=== PATIENT | female | born 1975 | race Caucasian/White ===

== ENCOUNTER 2025-10-05 14:33 | Emergency (ER) | payer OTHER, SELFPAY ==
[2025-10-05 14:44] VITALS: BP 136/84; PULSE 97; TEMP 36.8; O2SAT 99; BMI 23.0
--- NOTE | 2025-10-05 14:52 | ED.GENADUL1 ---
HPI HPI - General Adult General Chief complaint: Extremity Problem, Nontraumatic Stated complaint: POSSIBLE L LEG INFECTION Time Seen by Provider: 10/05/25 14:46 Source: patient Mode of arrival: walk-in History of Present Illness HPI narrative: 50-year-old female presents for an area of redness and swelling on her left leg. She is concerned about a staph infection. She had visited a family member who recently had staph. It is been red and swollen for about 4 days. No fever or vomiting. Related Data Home Medications ?Medication ?Instructions ?Recorded ?Confirmed losartan 100 mg tablet 100 mg PO DAILY 10/05/25 10/05/25 Previous Rx's ?Medication ?Instructions ?Recorded cephalexin 500 mg capsule 500 mg PO QID 10 days #40 caps 10/05/25 sulfamethoxazole 800 1 tab PO BID 10 days #20 tabs 10/05/25 mg-trimethoprim 160 mg tablet (Bactrim DS) Allergies Allergy/AdvReac Type Severity Reaction Status Date / Time No Known Drug Allergies Allergy Verified 10/05/25 14:43 Opioid HPI Opioid Management Most Recent Opioid Data: Last Pain Scale 6 Today, 14:50 Review of Systems ROS Narrative A ten point review of systems is negative except as noted above. PFSH PFSH Social History Little interest or pleasure in doing things: not at all Feeling down, depressed, or hopeless: not at all Exam Narrative Exam Narrative: Nurses note and vital signs reviewed General:The patient appears in no apparent distress. Patient is resting comfortably on cart. Skin:Warm, dry, no pallor noted.there is on her left lower leg and area of slight swelling approximately 3 cm in diameter. Surrounding this is a nonraised area of erythema. There is no lymphangitis and there is no fluctuance or purulent drainage. Head:Normocephalic, atraumatic Eye: Normal conjunctiva, no drainage Ears, Nose, Mouth, and Throat: oral mucosa is moist. Nares patent. Cardiovascular:Regular Rate and Rhythm Respiratory:Patient is in no distress, no accessory muscle use, lungs are clear to auscultation, no wheezing, rales or rhonchi Back:non-tender GI: Soft and nontender Musculoskeletal: See above for description of lesion on left leg Neurological:A&O, normal speech Psychiatric:Cooperative Constitutional Vital Signs, click to edit/add: Last Vital Signs Temp 98.2 F 10/05/25 14:44 Pulse 97 H 10/05/25 14:44 Resp 16 10/05/25 14:44 BP 136/84 10/05/25 14:44 Pulse Ox 99 10/05/25 14:44 O2 Del Method Room Air 10/05/25 14:44 Course Vital Signs Vital signs: Vital Signs Temperature 98.2 F 10/05/25 14:44 Pulse Rate 97 H 10/05/25 14:44 Respiratory Rate 16 10/05/25 14:44 Blood Pressure 136/84 10/05/25 14:44 Pulse Oximetry 99 10/05/25 14:44 Oxygen Delivery Method Room Air 10/05/25 14:44 Temperature 98.2 F 10/05/25 14:44 Pulse Rate 97 H 10/05/25 14:44 Respiratory Rate 16 10/05/25 14:44 Blood Pressure 136/84 10/05/25 14:44 Pulse Oximetry 99 10/05/25 14:44 Oxygen Delivery Method Room Air 10/05/25 14:44 Medical Decision Making MDM Narrative Medical decision making narrative: The patient has cellulitis of her left leg and was given IV vancomycin. She was prescribed Bactrim and Keflex. Blood work is significant for hemoglobin of 8.6 and she does not have a history of anemia but has had heavy periods. She will follow-up with her PCP for workup in that regard. Treatment diagnosis and follow-up were discussed with the patient. I have no clinical suspicion of an abscess. Differential Diagnosis Differential Diagnosis: Cellulitis, abscess Lab Data Lab results reviewed: Yes I reviewed the patient's lab results Labs: Lab Results 10/05/25 Range/Units 15:10 WBC 9.0 (4.0-11.0) 10^3/uL RBC 4.62 (4.20-5.40) 10^6/uL Hgb 8.6 L (12.0-16.0) g/dL Hct 29.1 L (36.0-48.0) % MCV 63.0 L (81.0-99.0) fL MCH 18.6 L (26.7-34.0) pg MCHC 29.6 L (29.9-35.2) g/dL RDW 17.9 H (11.0-15.0) % Plt Count 364 (150-450) 10^3/uL MPV 9.4 L (9.5-13.5) fL Neut % (Auto) 75.0 (43.0-75.0) % Lymph % (Auto) 16.4 L (20.5-60.0) % Sutter % (Auto) 5.9 (1.7-12.0) % Eos % (Auto) 1.9 (0.9-7.0) % Baso % (Auto) 0.4 (0.2-2.0) % Neut # (Auto) 6.7 H (1.4-6.5) 10^3/uL Lymph # (Auto) 1.5 (1.2-3.8) 10^3/uL Sutter # (Auto) 0.5 (0.3-0.8) 10^3/uL Eos # (Auto) 0.2 (0.0-0.7) 10^3/uL Baso # (Auto) 0.0 (0.0-0.1) 10^3/uL Abs Immat Gran (auto) 0.04 H (0.00-0.03) 10^3/uL Imm/Tot Granulo (auto) 0.4 (0.0-0.5) % Sodium 138 (136-145) mmol/L Potassium 3.5 (3.5-5.1) mmol/L Chloride 102 (98-107) mmol/L Carbon Dioxide 27.0 (21.0-32.0) mmol/L Anion Gap 12.5 BUN 11.0 (7.0-18.0) mg/dL Creatinine 0.85 (0.55-1.02) mg/dL Est GFR ( Amer) >60 (>=60 mL/min/1.73m^2) Est GFR (Non-Af Amer) >60 (>=60 mL/min/1.73m^2) BUN/Creatinine Ratio 12.9 Glucose 97 (74-106) mg/dL Calcium 8.7 (8.5-10.1) mg/dL Discharge Plan Discharge Chief Complaint: Extremity Problem, Nontraumatic Clinical Impression: Cellulitis of left leg, Anemia Patient Disposition: Home, Self-Care Time of Disposition Decision: 15:49 Condition: Good Mode of Transportation: Private Vehicle Prescriptions / Home Meds: New sulfamethoxazole-trimethoprim [Bactrim DS] 800-160 mg tablet 1 tab PO BID 10 Days Qty: 20 0RF cephalexin 500 mg capsule 500 mg PO QID 10 Days Qty: 40 0RF No Action losartan 100 mg tablet 100 mg PO DAILY Print Language: Citizen Of [place] Instructions: Cellulitis (ED), Anemia (ED) Referrals: VAISHALI GILES [Primary Care Provider, Family Practice] - 1 week
[2025-10-05] MEDS: VANCOMYCIN HCL 1,000 MG in 0.9 % SODIUM CHLORIDE 250 ML 250 MG IV (15:15)
[2025-10-05 15:25] LABS: Hematocrit 29.1 % (36.0-48.0); Hemoglobin 8.6 g/dL (12.0-16.0); Immature Granulocytes Abs Auto 0.04 10^3/uL (0.00-0.03); Immature Granulocytes Pct Auto 0.4 % (0.0-0.5); Lymphocytes Absolute Auto 1.5 10^3/uL (1.2-3.8); Mean Corpuscular HGB Conc 29.6 g/dL (29.9-35.2); Mean Corpuscular Hemoglobin 18.6 pg (26.7-34.0); Mean Corpuscular Volume 63.0 fL (81.0-99.0); Platelet Count 364 10^3/uL (150-450); Red Blood Count 4.62 10^6/uL (4.20-5.40); White Blood Count 9.0 10^3/uL (4.0-11.0)
[2025-10-05 15:36] LABS: Anion Gap 12.5; Blood Urea Nitrogen 11.0 mg/dL (7.0-18.0); Calcium 8.7 mg/dL (8.5-10.1); Carbon Dioxide 27.0 mmol/L (21.0-32.0); Chloride 102 mmol/L (98-107); Estimated GFR (African America >60 (>=60 mL/min/1.73m^2); Estimated GFR (Non-African Ame >60 (>=60 mL/min/1.73m^2); Glucose 97 mg/dL (74-106); Potassium 3.5 mmol/L (3.5-5.1); Sodium 138 mmol/L (136-145)
[2025-10-05] MEDS: DIPHENHYDRAMINE HCL 50 MG/ML VIAL 25 MG IVP (15:49)
--- NOTE | 2025-10-05 15:52 | PC.NURSE ---
freelance copywriter to bedside pt states she is having itching on her upper half of body will continue plan of care
--- OUTSIDE RECORDS SUMMARY | 2025-10-05 16:03 | XMS_ITS | Clinical Summary ---
Author Organization [facility] Address [address] [facility] [place] [address] Care Team Providers Care Coin Purse Framer Name Role Phone Unavailable Primary Care Provider Unavailabl e Source Comments The following information is NOT included in Care Everywhere downloads:Psychiatric notes, ECG results, Cardiac Rehab notes, Pulmonary Function notes, data from [employer]s (includes but not limited toPregnancy data,audiograms, eye exams, pre-surgical evaluation notes, well-child exam data).[facility] Allergies No known active allergies Medications No known medications Active Problems No known active problems Social History Tobacco UseTypesPacks/DayYears UsedDateSmoking Tobacco: NeverAlcohol UseStandard Drinks/WeekCommentsNo0 (1 standard drink = 0.6 oz pure alcohol)Substance Use TypesUse/WeekCommentsNoCommentsUnknownSex and Gender InformationValue Date RecordedSex Assigned at BirthNot on fileLegal NooSxtqik97/27/2016 11:33 AM EDTGender IdentityNot on fileSexual OrientationNot on file Last Filed Vital Signs Vital SignReadingTime TakenCommentsBlood Gvmarjzv706/6905 11:27 AM EDT Bzwxs6862 11:27 AM EDTTemperature--Respiratory Rate--Oxygen Saturation-- Inhaled Oxygen Concentration--Weight--Height--Body Mass Index-- Plan of Treatment Health MaintenanceDue DateLast AphrVqqukmecDxkfhjixiro1977HIV Test 1992Hepatitis C Sbcpslln09/05/1995Tdap Ksscpde6106/12/1995Hepatitis A (HAV) Vaccine (optional start 19+ years)1996Hepatitis B (HBV) Vaccine (1 of 3 - 19+ 3-dose series)1996Pap Smear06/12/19989854Aunhmvoacni73/05/2017CRC Bhvkypxfr18/05/8914Wzlzvpkjnfy01/05/2022ologuard (Stool DNA)2022FIT 2022OVID-19 Vaccine (2024- season)2025Influenza Vaccine (#1) 2025Shingles (RZV) Vaccine (1 of 2)2027Pneumococcal Vaccine(s)Aged OutNo longer eligible based on patient's age to complete this topic Insurance * Guarantor: Luis Tate TypeRelation to PatientDate of BirthPhone Billing AddressPersonal/HhbxgsEhmw1975 [address] [address] on file * Guarantor: Luis Tate TypeRelation to PatientDate of BirthPhone Billing UktminhGcgpdjjmddwjoWuyw[address] [place] [phone]
--- OUTSIDE RECORDS SUMMARY | 2025-10-05 16:03 | XMS_ITS | Clinical Summary ---
Demographics Address [address] [place] [address] Home Phone Preferred Language en Marital Status Single Confucianism Affiliation Unknown Race Other Race Ethnic Group Unknown Author Organization [facility] Address [address] [place] [address] Phone Care Team Providers Care Luggage Liner Name Role Phone Unavailable Primary Care Provider Unavailabl e Social History Tobacco UseTypesPacks/DayYears UsedDateSmoking Tobacco: Never Assessed CommentsUnknownSex and Gender InformationValueDate RecordedSex Assigned at Not on fileLegal CznZlitms28/25/2022 11:24 PM ESTGender IdentityNot on file Sexual OrientationNot on file Plan of Treatment Not on file
--- OUTSIDE RECORDS SUMMARY | 2025-10-05 16:03 | XMS_ITS | Clinical Summary ---
Author Organization [facility] tem Address [id number] [address] [place] [address] Care Team Providers Care Taco Maker Name Role Phone Maged Navarro MD Primary Care Provider [phone] Allergies No known active allergies Medications MedicationSigDispense QuantityRefillsLast FilledStart DateEnd DateStatus losartan (COZAAR) 100 mg tablet Indications:Primary hypertensionTake 1 tablet (100 mg total) by mouth in the morning. 90 tablet 5Active Active Problems ProblemNoted DateDiagnosed DatePrimary rpzwzfoovlwd87/06/2024 Encounters DateTypeDepartmentCare KhqyNejfljyqdqu87/30/2025Telephone [facility] [address] [facility] [address] [place] [phone] Shadia Snow CMA Appointment; Colon Cancer Screening; Pap Smearfrom Last 3 Months Immunizations ImmunizationAdministration DatesNext DueCOVID-19, mRNA, LNP-S, PF, 100mcg/0.5mL Dose01/18/2021,7020QCgT13/12/1980,05/04/1978,01/18/1978,1977MMR 10/15/2009,05/19/1980OPV05/19/1980,05/04/1978,01/18/1978,1977Tdap 10/15/2009 Family History Medical HistoryRelationNameCommentsProstate cancerMaternal GrandfatherLung cancerMaternal Grandmotherd.50s-60'sBreast cancerMotherOvarian cancerMotherBRCA1 U0550FZiiask cancerPaternal AuntLung cancerPaternal GrandmotherThyroid cancer Paternal UncleRelationNameStatusCommentsMaternal GrandfatherMaternal Grandmother MotherPaternal AuntPaternal GrandmotherPaternal Uncle Social History Tobacco UseTypesPacks/DayYears UsedDateSmoking Tobacco: NeverSmokeless Tobacco: Never Tobacco Cessation:Counseling Given: No Alcohol UseStandard Drinks/WeekCommentsYes0 (1 standard drink = 0.6 oz pure alcohol)sociallyPHQ-2AnswerDate RecordedTotal Qmdzy4135ChildcareAnswer Date AtlxdgwhOaybwnchvJfhfxer82/12/2019EmploymentAnswerDate RecordedEmployment Mgvkxvn1803/19/2019Hunger ScreeningAnswerDate RecordedWithin the past 12 months we worried whether our food would run out before we got money to buy more.Never True01/14/2025Within the past 12 months the food we bought just didn't last and we didn't have money to get more.Never True01/14/2025Purpose - LifeAnswerDate RecordedPurpose and direction in qmuiBddennp70/11/2021CommentsUnknownSex and Gender InformationValueDate RecordedSex Assigned at BirthNot on fileLegal XykHggubm72/06/2015 11:45 AM EDTGender IdentityNot on fileSexual OrientationNot on file Last Filed Vital Signs Vital SignReadingTime TakenCommentsBlood Rjdmzsth442/9204 10:18 AM EDT Pdxsb892901/14/2025 10:18 AM UYFUdcemumykaz54.7 ??C (98.1 ??F)01/14/2025 10:18 AM EDTRespiratory Rbsm361201/14/2025 10:18 AM EDTOxygen Frgxnezyii51%01/14/2025 10:18 AM EDTInhaled Oxygen Concentration--Nsgath26.3 kg (139 lb 9.6 oz)01/14/2025 10:18 AM KRBGwpvxd388.9 cm (5' 1 )01/14/2025 10:18 AM EDTBody Mass Index26.38 01/14/2025 10:18 AM EDT Plan of Treatment Health MaintenanceDue DateLast DoneCommentsAdult BMI Follow Up Plan1995Pap Smear06/12/19984541Qokgtrbya31DTaP,Tdap and Td Vaccines (6 - Td or Tdap), 05/19/1980, 05/04/1978, Additional history exists COVID-19 Vaccine ( season)/, 01/18/2021, 12/27/2020Influenza Bcviikd38/dult BMI Fblopxsze94/09/2026 01/14/2025Depression Dngykiksy89Tobacco Xobfmkgxk13/09/2026 01/14/2025 Medical Devices Not on file Procedures Procedure NamePriorityDate/TimeAssociated DiagnosisCommentsMAMM SCREENING BILATERAL W UYYTmbzgzm04/11/2017 5:02 PM EDT Screening mammogram, encounter for from Last 3 Months or Most Recently Relevant to Health Maintenance Results * Mammography screening bilateral with CAD (04/17/2017 5:02 PM EDT)Anatomical RegionLateralityModalityBreastBilateralMammographySpecimen (Source)Anatomical Location / LateralityCollection Method / VolumeCollection TimeReceived Time 04/18/2017 10:33 AM EDT Narrative 04/18/2017 10:49 AM EDT History: Screening mammogram Technique: Digital mammographic images of both breasts were obtained in CC and MLO projections. ??Computer-aided detection was utilized. ??Tomosynthesis was also performed bilaterally. Comparison: ??01/23/2011 Findings: There is heterogeneously dense breast tissue throughout both breasts. There are scattered calcifications seen throughout both breasts.. ??There is no evidence of dominant mass lesion, clustered microcalcifications, or skin thickening in either breast to suggest the presence of malignancy. Impression: Both breasts negative for evidence of malignancy by digital mammography. ??A screening mammogram in one year is recommended. BI-RADS 2 Finalized by Emmanuel Flores MD on 04/18/2017 10:49 AM MAMM 1 YR c 2 Procedure Note Emmanuel Flores MD - 04/18/2017 History: Screening mammogram Technique: Digital mammographic images of both breasts were obtained in CCand MLO projections. Computer-aided detection was utilized.Tomosynthesis was also performed bilaterally. Comparison: 01/23/2011 Findings: There is heterogeneously dense breast tissue throughout both breasts. There are scattered calcifications seen throughout both breasts.. Thereis no evidence of dominant mass lesion, clustered microcalcifications, orskin thickening in either breast to suggest the presence of malignancy. Impression: Both breasts negative for evidence of malignancy by digital mammography. A screening mammogram in one year is recommended. BI-RADS 2 Finalized by Emmanuel Flores MD on 04/18/2017 10:49 AM MAMM 1 YR c 2 Authorizing ProviderResult TypeResult StatusMaged Navarro MDG MAMMOGRAPHY ORDERABLESFinal Result from Last 3 Months or Most Recently Relevant to Health Maintenance Insurance [address] [place] [address] Care Teams Team MemberRelationshipSpecialtyStart DateEnd Date Maged Navarro MD [address] [place] [address], [address] [place] [address] PCP - GeneralPediatrics04/17/17
== END 2025-10-05 16:23 | disposition home or self-care (01) ==
PROVIDERS: Emergency Provider Emergency Medicine; PCP Internal Medicine
DX: L03.116 Cellulitis of left lower limb (principal); D64.9 Anemia, unspecified
CPT/HCPCS: 36415; 80048; 85025; 96365; 96375; 99284; J1200; J3373